=== PATIENT | male | born 2000 ===

== ENCOUNTER 2019-06-22 18:37 | Emergency (ER) | payer SELFPAY ==
[~2019-06-22] VITALS: Ht 182.9 cm; Wt 84.5 kg
[2019-06-22] MEDS ORDERED: IBUPROFEN 200 MG TABLET ONE (19:54)
[2019-06-22] MEDS ORDERED: ACETAMINOPHEN 325 MG TABLET ONE (19:54)
[2019-06-22] MEDS ORDERED: ACETAMINOPHEN 325 MG TABLET PO ONE (20:00)
[2019-06-22] MEDS ORDERED: IBUPROFEN 200 MG TABLET PO ONE (20:00)
[2019-06-22 20:12] LABS: RAPID INFLUENZA A Negative (Negative); RAPID INFLUENZA B Negative (Negative)
[2019-06-22 20:23] VITALS: BP 124/64
== END 2019-06-22 20:32 | disposition home or self-care (01) ==
LOC: ED 20:00
DX: R05 Cough (principal); R00.0 Tachycardia, unspecified; R07.89 Other chest pain; R50.9 Fever, unspecified
CPT/HCPCS: 71046; 87400; 93005; 99284